=== PATIENT | female | born 1990 | race Caucasian/White ===

== ENCOUNTER 2017-03-29 18:56 | Emergency (ER) | payer SELFPAY ==
[2017-03-29] MEDS: ORPHENADRINE CITRATE 60 MG/2ML IM ONE (20:53)
[2017-03-29] MEDS: KETOROLAC TROMETHAMINE 60 MG/2 ML VIAL IM ONE (20:53)
[2017-03-29 21:14] VITALS: BP 122/74
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
--- NOTE | 2017-03-30 05:38 | Diagnostic Imaging Report ---
MJ COLVIN~ [facility] [id number] [facility] [address] [place] [address]. [id number] ~ ~ ~ ~ Report Submission Date: Mar 29, 2017 7:48:28 PM CDT Patient ~ Study Name: MARIA TERESA RODRIGUEZ ~ Date: Mar 29, 2017 7:11:58 PM CDT ~ Modality Type: CT\SR Gender: F ~ Description: CT C-SPINE W/O CONTRAS : 91 ~ Institution: [facility] Physician: MJ COLVIN ~ ~ ~ ~ Examination: CT cervical spine History: Trauma Comparison exams: None provided Technique: CT cervical spine axial imaging with sagittal and coronal reconstruction Findings: Sagittal reconstruction demonstrates normal height and alignment the cervical vertebral bodies. No anterior compression deformity.~ Coronal reconstruction does not demonstrate locked or perched facets. No atlantoaxial abnormality. Axial imaging obtained from the skull base through T1 Lamina and pedicles are intact.~~ No ossific density within the central canal. No prevertebral soft tissue abnormality. Impression:~ No evidence for fracture ~ Electronically signed on Mar 29, 2017 7:48:28 PM CDT by: Terry PALACIOS
--- NOTE | 2017-03-30 05:39 | Diagnostic Imaging Report ---
MJ COLVIN~ [facility] [address] [facility] [place] [phone]. [id number] ~ ~ ~ ~ Report Submission Date: Mar 29, 2017 7:51:05 PM CDT Patient ~ Study Name: MARIA TERESA RODRIGUEZ ~ Date: Mar 29, 2017 7:09:46 PM CDT ~ Modality Type: CT\SR Gender: F ~ Description: CT BRAIN W/O CONTRAST : 91 ~ Institution: [facility] Physician: MJ COLVIN ~ ~ ~ ~ Examination: CT head without contrast History: Trauma Comparison exam: None available Technique: Noncontrast head CT protocol. Findings: Ventricles and sulci are appropriate for patient age. Cerebrocerebellar parenchyma demonstrates normal attenuation. No evidence for parenchymal hemorrhage. No evidence for mass or mass effect. No midline shift. No extra axial fluid collections. Partial visualization of the paranasal sinuses , mastoid air cells, orbits, skull and scalp without gross irregularity. Minimal bone edge artifact. Impression: No acute parenchymal process. No hemorrhage. ~ Electronically signed on Mar 29, 2017 7:51:05 PM CDT by: Terry PALACIOS
== END 2017-03-29 21:12 | disposition home or self-care (01) ==
LOC: ED 18:56
DX: S00.90XA Unspecified superficial injury of unspecified part of head, initial encounter (principal); S16.1XXA Strain of muscle, fascia and tendon at neck level, initial encounter; X58.XXXA Exposure to other specified factors, initial encounter; Y93.9 Activity, unspecified; Y99.9 Unspecified external cause status
CPT/HCPCS: 70450; 72125; 96372; 99283; J1885; J2360